=== PATIENT | male | born 2000 | race Two or more races ===

== ENCOUNTER → 2021-06-15 | Outpatient (CLI) | payer OTHER ==
[~2021-06-15] VITALS: Ht 172.7 cm; Wt 74.8 kg
[~2021-06-15] MED LIST: ALBU2.5V8 INH; ESCITALOPRAM OX10 MG PO; REGADENOSON 0.4 MG/5 ML DISP.SYRIN. IV ONE
--- NOTE | 2021-06-15 13:32 | RAD ---
MR#: [id number] Date of Study: 06/15/2021 Ordering Physician: STACI CHRISTINA, Referring Physician: DAVID ZARATE Tech: [place] Charles, JONATHAN (R) (N) APPROVED REPORT Test Type: Pharmacological Stress Nurse/Tech: [place] Charles, JONATHAN (R) (N) Test Indications: DRISCOLL Cardiac History: asthma Medications: See Electronic Medical Record Medical History: See Electronic Medical Record Resting ECG: SR w/ elevated ST wave in lead V2 Resting Heart Rate: 76 bpm Resting Blood Pressure: 106/61mmHg Pretest Chest Pain: No chest pain Nurse/Tech Notes S1S2, lungs CTA Consent: The procedure was explained to the patient in lay terms. Informed consent was witnessed. Paulo eout was entered into [employer]. History and Stress Test performed by [place] Charles, JONATHAN (R) (N) Pharm. Details Pharmacologic stress testing was performed using 0.4mg per 5ml of regadenoson given intravenously ove r 7-10 seconds. Stress Symptoms SOA, some chest pain on rt side (normally on lt side when he has it) scale 5/10 for less than 1 minut e POST EXERCISE Reason for Termination: Infusion complete Max HR: 120 bpm Max Blood Pressure: 114/66mmHg Blood Pressure response to exercise: Normal blood pressure response during stress. Heart Rate response to exercise: wnl Chest Pain: Yes. see above note Arrhythmia: No. ST Change: No. no change from abnormal baseline INTERPRETATION Stress EKG Conclusion: The resting EKG shows a sinus rhythm and nonspecific ST-T wave changes with ST elevation in the septal leads. The stress EKG shows no significant changes from baseline. No EKG evidence of stress-induced ischemia. Imaging Protocol IMAGE PROTOCOL: Rest Tc-99m/stress Tc-99m 1 day Rest: Stress: Viability: Radiopharm.Tc99m XvypcgdyhEd41p Sestamibi Dose9.2mCi 33mCi Img Date 06/15/2021 06/15/2021 Inj-Img [id number]. 60min. Rest Admin Site:IV - Right AntecubitalAdministrator:[place] Charles, ARRT (R)(N) Stress Admin Site: IV - Right AntecubitalAdministrator: Jose Alfredo Tate, RT (R)(N) STRESS DATA End Diast. Vol.98.0mlAv. Heart Rate83.0bpm End Syst. Vol.26.0mlCO Index BSA0.0L/min Myocardial Inlu864.0gEject. Ugefzonv30.0% Stress Rates Pk. Fill Rate3.98EDV/secLVtime Pk. Fill 150.57msec Pk. Empty Rate4.41ESV/secLVtime Pk. Dpuia528.97msec 11/05 Pk. Fill2.13EDV/sec Stress Scores Regional WT2.00Summed WT10.00 Regional WM0.00Summed WM1.00 LV Perfusion The stress scans show no significant defects. The rest scans show no significant defects. Nuclear imaging shows no reversible ischemia or infarct. Wall Motion Left ventricular systolic function is normal with no regional wall motion abnormalities and an ejecti on fraction of greater than 70%. LV Perf. Quant 17 Seg. SSS0.00 17 Seg. SRS0.00 17 Seg. SDS0.00 Stress Defect Extent (% LAD)0.00Rest Defect Extent (% LAD)0.00Rev. Defect Extent (% LAD)0.00 Stress Defect Extent (% LCX) 0.00Rest Defect Extent (% LCX)0.00Rev. Defect Extent (% LCX)0.00 Stress Defect Extent (% RCA)0.00Rest Defect Extent (% RCA)0.00Rev. Defect Extent (% RCA)0.00 Stress Defect Extent (% MARIA T)0.00Rest Defect Extent (% MARIA T)0.00Rev. Defect Extent (% MARIA T)0.00 Conclusion 1. No EKG evidence of stress-induced ischemia. 2. Nuclear imaging shows no reversible ischemia or infarct. 3. Normal left ventricular systolic function with an ejection fraction of greater than 70%. 4. Low risk Lexiscan nuclear stress test. Signed by : Dagoberto Cardoza MD Electronically Approved : 06/15/2021 13:31:58
== END ==
LOC: NM 09:36
PROVIDERS: ATTEND Internal Medicine Cardiovascular Disease
DX: R06.00 Dyspnea, unspecified (principal); J45.909 Unspecified asthma, uncomplicated; R07.9 Chest pain, unspecified
CPT/HCPCS: 78452; 93017; A9500; J2785